=== PATIENT | female | born 1995 | race Caucasian/White ===

== ENCOUNTER → 2021-06-10 11:37 | Outpatient (CLI) | payer OTHER, SELFPAY ==
[2021-06-10 13:07] LABS: COVID19 -Nasal RAPID Negative (Negative)
== END ==
PROVIDERS: Visit Provider Nurse Practitioner Family
DX: Z01.812 Encounter for preprocedural laboratory examination (principal); Z20.822 Contact with and (suspected) exposure to COVID-19
CPT/HCPCS: 87635

== ENCOUNTER 2021-06-11 11:16 | Day surgery (SDC) | payer OTHER, SELFPAY ==
[2021-06-09 12:27] VITALS: BMI 33.7
[2021-06-11] VITALS (10 sets, daily range): BP systolic 118–132; BP diastolic 72–88; PULSE 54–67; RESP 13–18; TEMP 36–36.8; O2SAT 96–100; BMI 31.5
[2021-06-11] MEDS: ACETAMINOPHEN 325 MG TABLET 975 MG PO (12:11)
[2021-06-11] MEDS: LACTATED RINGERS 1,000 ML 42 ML IV (12:12)
--- NOTE | 2021-06-11 12:29 | PM.PREOP ---
Pre-operative Note Interval Note History & Physical reviewed/Exam performed by Physician: Yes Changes to H&P: No
--- NOTE | 2021-06-11 12:29 | PM.HP.1 ---
History of Present Illness History of Present Illness Date Patient Seen: 06/11/21 Time Patient Seen: 12:29 Chief complaint: Chronic tonsillitis Narrative: 26-year-old female with history of chronic tonsillitis and upper airway obstruction, incompletely responsive to medical therapy presents for tonsillectomy and possible adenoidectomy. Last seen in clinic 01/28/2021, no interval significant changes, no recent cough, cold, or fever. Patient History Medical History Anxiety Chest pain Enlarged tonsils Herniated nucleus pulposus, L5-S1, left Recurrent tonsillitis Shortness of breath Surgical History No pertinent past surgical history Family & Social History Family History Father Hypertension Diabetes mellitus Social History: household members significant other Tobacco & Substance use: Tobacco type e-cigarettes Smoking Status Current every day smoker alcohol intake frequency a few times a week Substance Use Type does not use Meds Home Medications and Allergies Home Medications Medication Instructions Recorded Confirmed Type acetaminophen 500 mg tablet 500 mg PO Q6H PRN 02/16/21 02/16/21 History (Tylenol Extra Strength) cholecalciferol (vitamin D3) 50 50 mcg PO DAILY 02/16/21 06/11/21 History mcg (2,000 unit) capsule gabapentin 300 mg capsule 300 mg PO .COMPLEX #90 cap 02/16/21 06/11/21 Rx clonidine HCl 0.1 mg tablet 0.1 mg PO DAILY 06/10/21 06/10/21 History methylphenidate HCl 36 mg 36 mg PO DAILY 06/10/21 06/11/21 History tablet,extended release 24 hr Allergies Allergy/AdvReac Type Severity Reaction Status Date / Time No Known Drug Allergies Allergy Verified 06/11/21 12:00 Review of Systems Review of Systems Narrative: Negative except as mentioned in the HPI Exam Vital Signs (past 8 hours): - 06/11/21 11:45 Temperature 98.3 F Pulse Rate 67 Respiratory Rate 18 Blood Pressure 119/81 Pulse Oximetry 98 Oxygen Delivery Method Room Air Narrative Exam Narrative: Well-developed well-nourished female in no acute distress, heart regular rate and rhythm without murmur lungs clear to auscultation bilaterally Assessment & Plan Assessment & Plan narrative: Assessment: Chronic tonsillitis, upper airway obstruction secondary to tonsillar, possible adenoid hypertrophy Plan: Following discussion of the material risks benefits complications and alternatives, the patient elected to proceed with tonsillectomy and possible adenoidectomy as outpatient. Time Spent With Patient Critical Care time: I spent a total of [] minutes of critical care time on this patient's care today; this time is exclusive of procedural time.
--- NOTE | 2021-06-11 12:31 | PM.OP.1 ---
Operative Date/Time/Diagnoses Date of procedure: 06/11/21 Time of procedure: 14:23 Pre-op diagnosis: Chronic tonsillitis, upper airway obstruction secondary to tonsillar, possible adenoid hypertrophy Post-op diagnosis: same (With mild adenoid hypertrophy) Procedure & Clinicians Procedure: Tonsillectomy and adenoidectomy Same procedure as scheduled: Yes Indications: 26-year-old female with the above diagnoses incompletely managed with medical therapy presents for the above procedure. Following discussion of the material risks benefits complications and alternatives she elected to proceed. Surgeon: Dave Pulido Click Yes if Unassisted: Yes Anesthesia Type: General and Local Operative Notes Findings: Intact palate, single uvula, 2-3+ tonsils, 2+ adenoids Estimated Blood Loss (mL): 10 Procedure in detail: Following identification and confirmation of consent the patient was brought to the operating room suite and placed in the supine position. General endotracheal anesthesia was administered. A head wrap, shoulder roll, and mouth gag were placed and a red rubber catheter was inserted through the nostril and out the mouth to retract the soft palate. Partially obstructive adenoid tissue was ablated with suction electrocautery on a setting of 40, without injury to the eustachian tube orifices or choana. The left tonsil was retracted medially and suction electrocautery on a setting of 30 was used to dissect the tonsil in a subcapsular plane, followed by hemostasis with the same. This process was repeated on the right side with identical findings. The tonsillar fossae were superficially infiltrated bilaterally with a 1:1 mixture of 1% lidocaine 1 100,000 epinephrine and 0.25% Marcaine 1 to [id number] epinephrine. Mouth gag and rubber catheter were removed and the patient was extubated in the operating room and taken to the recovery room in stable condition without known complication. Complications: none Post-operative Condition: stable Disposition: same day surgery Plan for aftercare: Push fluids, alternate Tylenol and Advil every 3 hours for baseline pain control, oxycodone for breakthrough pain. Soft diet 2 full weeks, no heavy lifting or straining 2 weeks.
--- NOTE | 2021-06-11 13:40 | SUR.OPER ---
Supine on padded OR bed, head on pillow, arms padded and tucked at sides, legs uncrossed, safety belt at thigh, tape over blanket over lower legs .
[2021-06-11] MEDS: BUPIVACAINE 0.25% (PF) VIAL 3 ML INJ (14:20)
[2021-06-11] MEDS: LIDOCAINE 1% W/EPI 20 ML INJ (14:21)
[2021-06-11] MEDS: OXYCODONE IR 5 MG TABLET PO (15:01)
== END 2021-06-11 15:30 | disposition home or self-care (01) ==
PROVIDERS: PCP Physician Assistant; Referring Provider Otolaryngology; Visit Provider Otolaryngology
PROC: (CPT 42821; principal; 2021-06-11 12:30)
DX: J35.01 Chronic tonsillitis (principal); J98.8 Other specified respiratory disorders; F17.210 Nicotine dependence, cigarettes, uncomplicated; F41.9 Anxiety disorder, unspecified
CPT/HCPCS: 42821; 81025; J1100; J2250; J2405; J2704; J3010

== ENCOUNTER 2021-07-21 20:50 | Emergency (ER) | payer OTHER, SELFPAY ==
[2021-07-21 20:51] VITALS: BP 148/80; PULSE 102; RESP 14; TEMP 36.5; O2SAT 100; BMI 30.1
--- NOTE | 2021-07-21 20:58 | ED.NECK ---
HPI - Neck Pain/Injury General Chief Complaint: Skin/Abscess/Foreign Body Stated Complaint: lump on neck, growing rapidly Time Seen by Provider: 07/21/21 20:52 History of Present Illness HPI Narrative: 26-year-old female who vapes with history of chronic tonsillitis presents with significant other and a chief complaint of significant pain and swelling to her left lateral neck. She states that she had suffered chronic tonsillitis for quite some time in received consultation by Dr. Pulido at [facility] in May and had a tonsillectomy on the . She had been doing fine well and about 3-4 weeks later she started developing pain and swelling of her left lateral neck under the angle of her jaw. She had been seen by Dr. Pulido again and was placed on a course of antibiotics, this did not improve anything and yesterday he did a fine-needle aspiration and biopsy. Today it is significantly more swollen and tender than it has been at any point time. She states that she feels like something may be dripping down her throat but denies any difficulty in swallowing. She has had no fever chills. She denies any chest pain, difficulty controlling secretions or breathing. Related Data Home Medications Medication Instructions Recorded Confirmed acetaminophen 500 mg tablet 500 mg PO Q6H PRN 02/16/21 02/16/21 (Tylenol Extra Strength) cholecalciferol (vitamin D3) 50 50 mcg PO DAILY 02/16/21 06/11/21 mcg (2,000 unit) capsule clonidine HCl 0.1 mg tablet 0.1 mg PO DAILY 06/10/21 06/10/21 methylphenidate HCl 36 mg 36 mg PO DAILY 06/10/21 06/11/21 tablet,extended release 24 hr Previous Rx's Medication Instructions Recorded gabapentin 300 mg capsule 300 mg PO .COMPLEX #90 cap 02/16/21 prednisone 20 mg tablet 40 mg PO DAILY 5 Days tab 07/21/21 prednisone 20 mg tablet 40 mg PO DAILY 5 Days tab 07/21/21 Allergies Allergy/AdvReac Type Severity Reaction Status Date / Time No Known Drug Allergies Allergy Verified 07/21/21 21:04 Review of Systems Review of Systems Narrative: GENERAL: Denies chills, fatigue, malaise, fever, sweats. HEENT: see HPI RESPIRATORY: Denies dyspnea, cough, wheezing, hemoptysis, sputum. CARDIOVASCULAR: Denies chest pain, palpitations, orthopnea, edema, GASTROINTESTINAL: Denies nausea, vomiting, abdominal pain, diarrhea, constipation, melena. : Denies dysuria, frequency, incontinence, hematuria, urinary retention. MUSCULOSKELETAL: denies weakness, joint pain, or bony pain SKIN: Denies rash, skin lesions, or other NEUROLOGIC: Denies weakness, headache, numbness, change in speech, confusion, seizures, incoordination. PSYCHIATRIC: No concerning psychosocial issues. 12 point review of systems is negative except for those stated above Patient History Medical History Anxiety Chest pain Enlarged tonsils Herniated nucleus pulposus, L5-S1, left Recurrent tonsillitis Shortness of breath Surgical History No pertinent past surgical history Family History Father Hypertension Diabetes mellitus Social History household members: significant other Smoking Status: Current every day smoker Smoking Status: Current every day smoker alcohol intake frequency: a few times a week Substance Use Type: does not use Exam Narrative Exam Narrative: GENERAL: [26] year old patient appears stated age. Well-developed patient, in mild distress. HEAD: Atraumatic. Normocephalic. EYES: Pupils equal round and reactive. Extraocular motions intact. No scleral icterus. No injection or drainage. ENT: Nose without bleeding, purulent drainage. Throat without erythema, tonsillar hypertrophy or exudate. Airway patent. NECK: Trachea midline. Large tender freely movable mass left anterior lateral neck under lying the ramus. Tender to palpation, no warmth, erythema or fluctuance CARDIOVASCULAR: Regular rate and rhythm without murmurs, gallops, or rubs. RESPIRATORY: Clear to auscultation. Breath sounds equal bilaterally. No wheezes, rales, or rhonchi. GASTROINTESTINAL: Abdomen soft, non-tender, nondistended. EXTREMITIES: No edema or joint tenderness. BACK: Nontender without deformity or crepitance. No flank tenderness. NEURO: AOx3. SKIN: No rash or erythema of visible areas Initial Vital Signs Initial Vital Signs: Vital Signs Temperature 97.7 F 07/21/21 20:51 Pulse Rate 102 H 07/21/21 20:51 Respiratory Rate 14 07/21/21 20:51 Blood Pressure 148/80 H 07/21/21 20:51 Pulse Oximetry 100 07/21/21 20:51 Course Orders Ordered: ED Orders 07/21/21 21:00 CT soft tissue neck w con Stat 07/21/21 21:05 BMP [Basic Metabolic Panel] Stat CBC Auto Diff [Complete Blood Count AUTO DIFF] Stat HCG Quantitative /Beta subunit Stat Consultations Consultation #1: call to control manager E[facility] ([facility]). Recommends Augmentin x5 days and tapering dose of steroids with follow up and classic return precautions. Vital Signs Vital signs: Vital Signs - 8 hr 07/21/21 20:51 07/21/21 23:09 Temperature 97.7 F Pulse Rate 102 H 77 Respiratory Rate 14 18 Blood Pressure 148/80 H 109/74 Pulse Oximetry 100 99 MDM - Neck Pain/Injury Lab Data Result diagrams: 07/21/21 21:05 07/21/21 21:05 Labs: Lab Results 07/21/21 07/21/21 Range/Units 21:05 21:05 WBC 10.3 (4.5-11.0) X10^3/uL RBC 4.89 (4.0-5.2) X10^6/uL Hgb 14.1 (12.0-16.0) g/dL Hct 42.6 (36-46) % MCV 87.2 (80-100) fL MCH 28.9 (26-34) PG MCHC 33.2 (30-36) % RDW 13.3 (11.6-14.8) % Plt Count 229 (150-400) X10^3/uL Neut % (Auto) 54.2 (50-75) % Lymph % (Auto) 38.7 (25-40) % [place] % (Auto) 5.3 (3-14) % Eos % (Auto) 1.3 L (2-4) % Baso % (Auto) 0.5 (0-2) % Neut # (Auto) 5600 (7475-3247) /uL Lymph # (Auto) 4000 (0804-3204) /uL [place] # (Auto) 500 (0-900) /uL Eos # (Auto) 100 (0-450) /uL Baso # (Auto) 100 (0-100) /uL Sodium 138 (137-145) mmol/L Potassium 3.6 (3.4-5.1) mmol/L Chloride 104 (98-107) mmol/L Carbon Dioxide 28 (22-32) mmol/L BUN 8 (7-17) mg/dL Creatinine 0.61 (0.52-1.04) mg/dL Estimated GFR > 60.0 (>60) mL/min BUN/Creatinine Ratio 13.1 (6-22) Glucose 104 H (70-100) mg/dL Calcium 9.5 (8.4-10.2) mg/dL HCG, Quant < 2.4 mIU/mL Imaging Data Soft Tissue Neck: Radiologist's Impression: Launch?[address] [address] [address] Scan Report Signed Patient: Alyssa Foreman MR#: [id number] : 1995 Acct:[id number] Age/Sex: 26 / F Date of Service: 07/21/21 Loc: ED Accession Number: [id number] ?? Procedure: CT soft tissue neck w con Ordering Provider: Dariel Lauren D.O. PROCEDURE:? CT SOFT TISSUE NECK W CON ? INDICATIONS:? pain and swelling left lateral neck, recent biopsy and tonsil ? TECHNIQUE:? After the administration of intravenous contrast, 3.0 mm axial sections acquired from the sella to the aortic arch.? Additional oblique axial 3.0 mm sections acquired through the pharynx.? 3 mm thick coronal and sagittal reformats were generated.? For radiation dose reduction, the following was used:? automated exposure control.? ? COMPARISON:? None. ? FINDINGS:? Image quality:? Excellent.? ? Lymph nodes:? There are multiple enlarged lymph nodes in the left neck.? The largest of which is just inferior to the left parotid gland, measuring approximately 2.1 x 2.5 x 1.6 cm.? This is directly deep to the marker that has been placed identifying the location of patient pain.? Immediately subjacent to this is a deeper anterior cervical lymph node measuring approximately 2.0 x 1.5 x 1.6 cm. ? Vessels:? Visualized vasculature appears patent.? ? Neck spaces:? The oropharynx, nasopharynx, and pharynx demonstrate no mucosal lesions.? The vocal cords, false vocal cords, pyriform sinuses, epiglottis, vallecula, and tongue base all appear normal.? Extramucosal spaces appear unremarkable.? No abscess cavities.? ? Glands:? The parotid and submandibular glands appear normal.? Thyroid gland is unremarkable as visualized..? ? Miscellaneous:? Visualized brain and orbits appear normal.? Lung apices appear clear.? Superficial soft tissues appear normal. ? Bones:? No suspicious bony lesions.? Visualized sinuses and mastoids appear unremarkable. ? ? ? IMPRESSION:? ? 1. The area of patient symptomatology corresponds to multiple enlarged left cervical lymph nodes, the largest of which is superficial, measuring 2.1 x 2.5 x 1.6 cm. ? 2. No evidence of neck abscess.? Dictated by: Matt Bey M.D. on 07/21/2021 at 22:13 ? ? Approved by: Matt Bey M.D. on 07/21/2021 at 22:17? Discharge Plan Departure Patient Disposition: Home Clinical Impression: LAD (lymphadenopathy) of left cervical region Activity Restrictions/Additional Instructions: *You have been diagnosed with [tender lymphadenopathy left lateral neck. As we discussed, your lab work and imaging are very reassuring and there is no indication that this is a large collection of pus or there is any active bleeding. *What to do: *Please continue to take your regular medications as directed. [x ] New medication prescriptions sent to your pharmacy: [ [facility] [place]] [ ] New medication written as a paper prescription [ ] No new medications given *Please follow up with Dr. Pulido, call tomorrow morning for an appointment. Let them know you were seen in the Emergency Department and that we ask that you be seen in follow up. We will electronically transmit a record of today's note *Return to Emergency Department if you should have any new, worsening or concerning symptoms, such as [fever greater than 101 F, shaking chills, worsening pain, persistent vomiting or other bothersome symptoms] Prescriptions: New prednisone 20 mg tablet 40 mg PO DAILY 5 Days 0RF prednisone 20 mg tablet 40 mg PO DAILY 5 Days 0RF No Action clonidine HCl 0.1 mg tablet 0.1 mg PO DAILY 0RF methylphenidate HCl 36 mg tablet extended release 24hr 36 mg PO DAILY 0RF acetaminophen [Tylenol Extra Strength] 500 mg tablet 500 mg PO Q6H PRN0RF cholecalciferol (vitamin D3) 50 mcg (2,000 unit) capsule 50 mcg PO DAILY 0RF gabapentin 300 mg capsule 300 mg PO .COMPLEX Qty: 90 2RF Rx Instructions: 1-2 PO Tid to begin at HS and titrate to pain relief Referrals: Catrachito Ho PA-C [Primary Care Provider] -
--- NOTE | 2021-07-21 21:00 | DI.CT.S_ITS ---
PROCEDURE: CT SOFT TISSUE NECK W CON INDICATIONS: pain and swelling left lateral neck, recent biopsy and tonsil TECHNIQUE: After the administration of intravenous contrast, 3.0 mm axial sections acquired from the sella to the aortic arch. Additional oblique axial 3.0 mm sections acquired through the pharynx. 3 mm thick coronal and sagittal reformats were generated. For radiation dose reduction, the following was used: automated exposure control. COMPARISON: None. FINDINGS: Image quality: Excellent. Lymph nodes: There are multiple enlarged lymph nodes in the left neck. The largest of which is just inferior to the left parotid gland, measuring approximately 2.1 x 2.5 x 1.6 cm. This is directly deep to the marker that has been placed identifying the location of patient pain. Immediately subjacent to this is a deeper anterior cervical lymph node measuring approximately 2.0 x 1.5 x 1.6 cm. Vessels: Visualized vasculature appears patent. Neck spaces: The oropharynx, nasopharynx, and pharynx demonstrate no mucosal lesions. The vocal cords, false vocal cords, pyriform sinuses, epiglottis, vallecula, and tongue base all appear normal. Extramucosal spaces appear unremarkable. No abscess cavities. Glands: The parotid and submandibular glands appear normal. Thyroid gland is unremarkable as visualized.. Miscellaneous: Visualized brain and orbits appear normal. Lung apices appear clear. Superficial soft tissues appear normal. Bones: No suspicious bony lesions. Visualized sinuses and mastoids appear unremarkable. IMPRESSION: 1. The area of patient symptomatology corresponds to multiple enlarged left cervical lymph nodes, the largest of which is superficial, measuring 2.1 x 2.5 x 1.6 cm. 2. No evidence of neck abscess. Dictated by: Matt Bey M.D. on 07/21/2021 at 22:13 Approved by: Matt Bey M.D. on 07/21/2021 at 22:17
[2021-07-21 21:20] LABS: Add Manual Diff / Slide Review NO; Basophils Absolute Auto 100 /uL (0-100); Basophils Percent Auto 0.5 % (0-2); Eosinophils Absolute Auto 100 /uL (0-450); Eosinophils Percent Auto 1.3 % (2-4); Hematocrit 42.6 % (36-46); Hemoglobin 14.1 g/dL (12.0-16.0); Lymphocytes Absolute Auto 4000 /uL (1100-4500); Lymphocytes Percent Auto 38.7 % (25-40); Mean Corpuscular HGB Conc 33.2 % (30-36); Mean Corpuscular Hemoglobin 28.9 PG (26-34); Mean Corpuscular Volume 87.2 fL (80-100); Monocytes Absolute Auto 500 /uL (0-900); Monocytes Percent Auto 5.3 % (3-14); Neutrophils Absolute Auto 5600 /uL (1500-7000); Neutrophils Percent Auto 54.2 % (50-75); Platelet Count 229 X10^3/uL (150-400); Red Blood Cell Count 4.89 X10^6/uL (4.0-5.2); Red Cell Distribution Width 13.3 % (11.6-14.8); White Blood Cell Count 10.3 X10^3/uL (4.5-11.0)
[2021-07-21 21:25] LABS: BUN Creatinine Ratio 13.1 (6-22); Blood Urea Nitrogen 8 mg/dL (7-17); Calcium 9.5 mg/dL (8.4-10.2); Carbon Dioxide 28 mmol/L (22-32); Chloride 104 mmol/L (98-107); Estimated Glomerular Filt Rate > 60.0 mL/min (>60); Glucose 104 mg/dL (70-100); HEMOLYSIS < 15 (0-50); Potassium 3.6 mmol/L (3.4-5.1); Sodium 138 mmol/L (137-145)
[2021-07-21 21:42] LABS: HCG Quantitative /Beta subunit < 2.4 mIU/mL
[2021-07-21 23:09] VITALS: BP 109/74; PULSE 77; RESP 18; O2SAT 99
== END 2021-07-21 23:20 | disposition home or self-care (01) ==
PROVIDERS: Emergency Provider Emergency Medicine; PCP Physician Assistant
DX: R59.0 Localized enlarged lymph nodes (principal)
CPT/HCPCS: 36415; 70491; 80048; 84702; 85025; 99284; Q9967